=== PATIENT | male | born 1955 | race Caucasian/White ===

== ENCOUNTER 2021-05-07 17:30 | Outpatient (CLI) | payer OTHER | END 2021-05-07 17:31 | disposition home or self-care (01) | LOC: SLEEPLAB 17:30 | PROVIDERS: ATTEND Family Medicine | DX: G47.33 Obstructive sleep apnea (adult) (pediatric) (principal); R53.83 Other fatigue; R06.83 Snoring; G47.00 Insomnia, unspecified; I10 Essential (primary) hypertension; G47.31 Primary central sleep apnea; E66.9 Obesity, unspecified; Z68.29 Body mass index [BMI] 29.0-29.9, adult | CPT/HCPCS: 95806 ==

== ENCOUNTER 2021-06-07 19:30 | Outpatient (CLI) | payer OTHER | END 2021-06-07 19:31 | disposition home or self-care (01) | LOC: SLEEPLAB 19:30 | PROVIDERS: ATTEND Family Medicine | DX: G47.33 Obstructive sleep apnea (adult) (pediatric) (principal); G47.39 Other sleep apnea; R53.83 Other fatigue; R06.83 Snoring; I10 Essential (primary) hypertension; G47.10 Hypersomnia, unspecified; E66.9 Obesity, unspecified; Z68.29 Body mass index [BMI] 29.0-29.9, adult | CPT/HCPCS: 95811 ==

== ENCOUNTER 2023-01-09 08:30 | Outpatient (CLI) | payer MEDICARE, OTHER | END 2023-01-09 08:31 | disposition home or self-care (01) | LOC: NM 08:30 | PROVIDERS: ATTEND Psychiatry & Neurology Neurology | DX: G20 Parkinson's disease (principal) | CPT/HCPCS: 78803; A9584 ×2 ==

== ENCOUNTER 2024-06-21 08:01 | Day surgery (SDC) | payer MEDICARE, OTHER ==
[2024-06-21] MEDS ORDERED: Sodium Bicarbonate 2.5 MEQ/5 ML SDV ONE (08:41)
[2024-06-21 12:30] LABS: CSF, Glucose 70 mg/dl (40-70); CSF, Protein 75.1 mg/dL (15-40)
[2024-06-21 12:31] LABS: CSF Source CSF; Clarity Clear (Clear); Tube # 4
[2024-06-21 12:52] LABS: Color Of CSF Supernatant COLORLESS (Colorless); Tube # 1; Unspun CSF Color COLORLESS (Colorless)
[2024-06-23 10:37] LABS: HSV 1 - DNA, CSF Negative (Negative); HSV 2 - DNA, CSF Negative (Negative)
[2024-06-23 14:37] LABS: VDRL, CSF Non Reactive (Non Rea:<1:1)
== END 2024-06-21 11:30 | disposition home or self-care (01) ==
LOC: RAD 08:01
PROVIDERS: ATTEND Psychiatry & Neurology Neurology
PROC: 009U3ZX Drainage of Spinal Canal, Percutaneous Approach, Diagnostic (ICD-10-PCS; principal; 2024-06-21)
DX: G20.C Parkinsonism, unspecified (principal); G47.30 Sleep apnea, unspecified; I12.9 Hypertensive chronic kidney disease with stage 1 through stage 4 chronic kidney disease, or unspecified chronic kidney disease; N18.30 Chronic kidney disease, stage 3 unspecified; Z98.890 Other specified postprocedural states; Z79.51 Long term (current) use of inhaled steroids; Z79.899 Other long term (current) drug therapy
CPT/HCPCS: 62270; 82945; 84157; 86592; 87070; 87102; 87205; 87529; 89051